=== PATIENT | female | born 1955 | race Caucasian/White ===

== ENCOUNTER 2016-12-22 06:00 | Day surgery (SDC) | payer OTHER ==
[~2016-12-22 06:00] MED LIST: IV START KIT ONE; LACTATED RINGERS 1,000 ML ONE
[2016-12-22] MEDS ORDERED: PROPOFOL 40 ML IV ONE (06:59)
[2016-12-22] MEDS ORDERED: MIDAZOLAM HCL 1 MG/ML 2ML VIAL IV PRN (07:04)
[2016-12-22] MEDS ORDERED: FENTANYL 250 MCG/5 ML AMP IV PRN (07:04)
[2016-12-22] MEDS ORDERED: LACTATED RINGERS 1,000 ML IV SCH (07:15)
[2016-12-22] MEDS ORDERED: PROPOFOL 20 ML IV ONE (07:35)
--- NOTE | 2016-12-24 12:15 | SURGPATH ---
[facility] [address] [place] [id number] Patient Name: ANA BEACH MR#: [id number] : 1955 Gender: F Specimen #: [id number] Collected: 12/22/2016 Received: 12/23/2016 Reported: 12/24/2016 Submitting Phys: MARÍA MOSLEY Copy To Phys: [facility] Clinical History / Pre-Operative Diagnosis: Surveillance Specimen Source / Surgical Procedure Performed: #1 rectal vault polyp x2+2, #2 sigmoid polyp 20 cm, #3 ascending colon polyp, #4 proximal transverse colon polyp Interpretation: 1, 2, 3. RECTAL VAULT POLYP, SIGMOID POLYP AT 20 CM, ASCENDING COLON POLYPS, BIOPSIES: - HYPERPLASTIC POLYPS 4. PROXIMAL TRANSVERSE COLON, POLYP, BIOPSY: - SESSILE SERRATED POLYP; NEGATIVE FOR DYSPLASIA Electronically Signed Out Brian Purdy M.D. Gross Description: The specimen is received in four formalin filled containers, labeled with the patient's name. 1. The specimen is labeled "rectal vault polyp x4" and consists of five irregularly shaped fragment(s) of diaz tissue aggregating to 1.0 x 1.0 x 0.3 cm. The specimen is entirely submitted in cassette 1A. 2. The specimen is labeled "sigmoid polyp 20 cm" and consists of one irregularly shaped fragment(s) of diaz tissue aggregating to 0.4 x 0.3 x 0.3 cm. The specimen is entirely submitted in cassette 2A. 3. The specimen is labeled "ascending colon polyp" and consists of two irregularly shaped fragment(s) of diaz tissue aggregating to 0.4 x 0.2 x 0.2 cm. The specimen is entirely submitted in cassette 3A. 4. The specimen is labeled "proximal transverse colon polyp" and consists of two irregularly shaped fragment(s) of diaz tissue aggregating to 0.7 x 0.3 x 0.3 cm. The specimen is entirely submitted in cassette 4A. KATELYNN Ramirez Microscopic Description: 1, 2, 3. Levels reveal colonic mucosa surfaced by tubular glands with focal hyperplastic features. Adenomatous and malignant features are not present. 4. Levels reveal colonic mucosa surfaced by tubular glands with serrated architecture. Focally features consistent with sessile serrated polyp are present. Dysplasia is not seen. 1: 00708 2: 82253 3: 47874 4: 16872 K62.1 K63.5 D12.3
== END 2016-12-22 08:36 | disposition home or self-care (01) ==
LOC: SDC 06:00
PROVIDERS: ATTEND Family Medicine
PROC: 0DBP8ZX Excision of Rectum, Via Natural or Artificial Opening Endoscopic, Diagnostic (ICD-10-PCS; principal; 2016-12-22)
PROC: 0DBK8ZX Excision of Ascending Colon, Via Natural or Artificial Opening Endoscopic, Diagnostic (ICD-10-PCS; 2016-12-22)
PROC: 0DBL8ZX Excision of Transverse Colon, Via Natural or Artificial Opening Endoscopic, Diagnostic (ICD-10-PCS; 2016-12-22)
PROC: 0DBN8ZX Excision of Sigmoid Colon, Via Natural or Artificial Opening Endoscopic, Diagnostic (ICD-10-PCS; 2016-12-22)
DX: Z12.11 Encounter for screening for malignant neoplasm of colon (principal); D12.2 Benign neoplasm of ascending colon; D12.3 Benign neoplasm of transverse colon; D12.5 Benign neoplasm of sigmoid colon; D12.8 Benign neoplasm of rectum
CPT/HCPCS: 45385; 45380; J7120